=== PATIENT | male | born 2005 | race Caucasian/White ===

== ENCOUNTER → 2024-06-17 10:47 | Outpatient (RCR) | payer OTHER, SELFPAY ==
[2023-04-05 08:21] LABS: Aspartate Amino Transferase* 50 U/L (12-35); Cholesterol* 194 mg/dL (90-199); HDL Cholesterol* 43 mg/dL (>=40); LDL Cholesterol Calculated 90 mg/dL (<100); Triglycerides* 306 mg/dL (40-149)
[2023-06-11 07:56] LABS: Aspartate Amino Transferase* 49 U/L (12-35); Cholesterol* 185 mg/dL (90-199)
[2023-06-11 07:57] LABS: HDL Cholesterol* 40 mg/dL (>=40); LDL Cholesterol Calculated 105 mg/dL (<100); Triglycerides* 198 mg/dL (40-149)
== END | disposition home or self-care (01) ==
LOC: LAB 04-05 07:37
PROVIDERS: Visit Provider Dermatology
DX: L70.0 Acne vulgaris (principal); Z79.899 Other long term (current) drug therapy
CPT/HCPCS: 36415; 80061; 84450